=== PATIENT | male | born 1960 | race Caucasian/White ===

== ENCOUNTER 2016-07-19 15:26 | Emergency (ER) | payer OTHER ==
[2016-07-19 17:05] LABS: HEMOGLOBIN 15.1 gm/dl (14.0-17.5); RED BLOOD COUNT 4.61 M/UL (4.20-5.50); WHITE BLOOD COUNT 6.2 K/UL (4.5-11.0)
[2016-07-19 17:28] LABS: BUN/CREATININE RATIO 21 (0-10)
== END 2016-07-19 19:15 | disposition home or self-care (01) ==
LOC: ER1 15:26
PROVIDERS: Physician Assistant Medical
DX: N13.2 Hydronephrosis with renal and ureteral calculous obstruction (principal); K80.20 Calculus of gallbladder without cholecystitis without obstruction; K57.30 Diverticulosis of large intestine without perforation or abscess without bleeding; I10 Essential (primary) hypertension; E78.5 Hyperlipidemia, unspecified; Z87.442 Personal history of urinary calculi; Z79.899 Other long term (current) drug therapy
CPT/HCPCS: 36415; 80053; 81001; 82150; 83690; 85025; 99284

== ENCOUNTER → 2016-08-20 | Outpatient (CLI) | payer OTHER | LOC: KOH-I 09:55 | DX: R94.5 Abnormal results of liver function studies (principal); K76.0 Fatty (change of) liver, not elsewhere classified; K80.20 Calculus of gallbladder without cholecystitis without obstruction | CPT/HCPCS: 76700 ==

== ENCOUNTER → 2020-05-09 | Outpatient (CLI) | payer OTHER ==
[~2020-05-09] MED LIST: FLOMAX 0.4 MG0.4 MG PO; IBU600 MG PO; KEFLEX500 MG PO; PERCOCET 5-3251 EACH PO; ZOFRAN ODT 4 MG4 MG PO
[2020-05-10 10:14] LABS: HBSAG SCREEN Negative (Negative); HEP A AB, IGM Negative (Negative); HEP B CORE AB, IGM Negative (Negative); HEP C VIRUS AB <0.1 (0.0-0.9)
[2020-05-10 13:15] LABS: ALPHA-1-ANTITRYPSIN, SERUM 119 mg/dL (101-187)
[2020-05-10 15:10] LABS: MITOCHONDRIAL (M2) ANTIBODY <20.0 Units (0.0-20.0)
== END ==
LOC: US 10:00
PROVIDERS: Internal Medicine Gastroenterology
DX: R74.8 Abnormal levels of other serum enzymes (principal); K80.20 Calculus of gallbladder without cholecystitis without obstruction; K76.0 Fatty (change of) liver, not elsewhere classified
CPT/HCPCS: 36415; 76705; 80074; 80076; 82103; 82728; 83540; 83550; 86038

== ENCOUNTER 2021-03-02 11:21 | Emergency (ER) | payer OTHER ==
[2021-03-02 11:50] LABS: RED BLOOD COUNT 3.86 M/UL (4.20-5.50)
[2021-03-02] MEDS ORDERED: ONDANSETRON ODT4 MG SL (14:13)
[2021-03-02] MEDS ORDERED: FLOMAX 0.4 MG0.4 MG PO (14:13)
== END 2021-03-02 15:00 | disposition home or self-care (01) ==
LOC: ER1 11:21
PROVIDERS: Physician Assistant
DX: N13.2 Hydronephrosis with renal and ureteral calculous obstruction (principal); I10 Essential (primary) hypertension; Z87.442 Personal history of urinary calculi
CPT/HCPCS: 80053; 81001; 83690; 85025; 96374; 96375; 99284; J1885; J2270; J2405